=== PATIENT | female | born 1950 ===

== ENCOUNTER 2017-11-06 17:34 | Emergency (ER) | payer MEDICARE ==
[2017-11-06 17:36] VITALS: BMI 33.3
[2017-11-06 17:46] VITALS: PULSE 77; TEMP 98.6
--- NOTE | 2017-11-06 18:06 | C.PDOC ---
"History Of Present Illness 67 year old female with PMHx of colon cancer and HTN presents to the ER complaining of sinus pain, throat pain, rhinorrhea, cough and subjective fever. Patient states she went to PMD 3 months ago for similar symptoms and was given antibiotics with mild relief. Patient also reports she went to the clinic for similar presentation and she was given antibiotics with no relief 3 weeks ago. Pt has tried OTC advil sinus and afrin x 1 week with transient improvement. Denies any nausea, vomiting, dizziness, headache, difficultly breathing, difficulty swallowing or sob. 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 History/Exam Limitations: no limitations Onset/Duration Of Symptoms: Days Current Symptoms Are (Timing): Still Present Location Of Pain: Throat, Sinus/es Sick Contacts (Context): None Associated Symptoms: Fever, Sore Throat, Cough, Nasal Congestion, Other ( Rhinorrhea ) Ear Symptoms: Bilateral: None Past Medical History Reviewed: Historical Data, Nursing Documentation, Vital Signs Vital Signs: Last Vital Signs Temp 98.6 F 11/06/17 19:20 Pulse 77 11/06/17 19:20 Resp 17 11/06/17 19:20 BP 135/69 11/06/17 19:20 Pulse Ox 100 11/06/17 19:20 - Medical History PMH: HTN, Malignancy (colon CA) Surgical History: Appendectomy - [facility] Procedures COLONOSCOPY (05/27/14) Family History: States: No Known Family Hx - Social History Hx Tobacco Use: No Hx Alcohol Use: No Hx Substance Use: No - Immunization History Hx Tetanus Toxoid Vaccination: No Hx Influenza Vaccination: Yes Hx Pneumococcal Vaccination: Yes Review Of Systems Except As Marked, All Systems Reviewed And Found Negative. Constitutional: Positive for: Fever ENT: Positive for: Nose Discharge, Nose Congestion, Throat Pain Respiratory: Negative for: Shortness of Breath Gastrointestinal: Negative for: Nausea, Vomiting Neurological: Negative for: Headache, Dizziness Physical Exam - Physical Exam Appears: Non-toxic, No Acute Distress Skin: Normal Color, Warm, Dry Head: Atraumatic, Normacephalic, Tenderness ((+) frontal sinus tenderness) Eye(s): bilateral: Normal Inspection, PERRL, EOMI Ear(s): Left: Normal, Right: TM Erythema Nose: Discharge (yellow discharge), Other ((+) swelling of turbinates) Oral Mucosa: Moist Tongue: Normal Appearing Lips: Normal Appearing Teeth: Normal Dentition Gingiva: Normal Appearing Throat: Normal, No Erythema, No Exudate, No Drooling Neck: Normal ROM, Supple Lymphatic: Normal Exam Chest: Symmetrical Cardiovascular: Rhythm Regular Respiratory: Normal Breath Sounds, No Rales, No Rhonchi, No Wheezing Gastrointestinal/Abdominal: Soft, No Tenderness Back: No CVA Tenderness, No Vertebral Tenderness Extremity: Normal ROM Neurological/Psych: Oriented x3, Normal Speech, Normal Cognition, Normal Cranial Nerves (2-12 grossly intact) Gait: Steady ED Course And Treatment O2 Sat by Pulse Oximetry: 96 (RA) Pulse Ox Interpretation: Normal - CT Scan/US CT head Other Rad Studies (CT/US): Read By Radiologist, Radiology Report Reviewed CT/US Interpretation: Name: CAMRYN BRYAN Age: 67Years F Date: 11/06/2017. Requesting Physician: Marie Kenny PA-C : 1950. [facility] Procedure Ordered As Accession Number of Images. CT HEAD WO CT HEAD W O CONTRAST [id number]. Provided Clinical History: pain. EXAM: CT Head Without Intravenous Contrast. EXAM DATE/TIME: Exam ordered 11/06/2017 6:00 PM. CLINICAL HISTORY: 67 years old, female; Pain; Headache; Headache not specified. TECHNIQUE: Axial computed tomography images of the head/brain without intravenous contrast. All CT scans at. this facility use at least one of these dose optimization techniques: automated exposure control; mA. and/or kV adjustment per patient size (includes targeted exams where dose is matched to clinical. indication); or iterative reconstruction. Coronal and sagittal reformatted images were created and reviewed. COMPARISON: No relevant prior studies available. FINDINGS: Brain: Mild low density noted within the periventricular white matter extending into the choroid and. centrum semiovale. Ventricles: Unremarkable. Bones/joints: Unremarkable. No acute fracture. Soft tissues: Unremarkable. Sinuses: Near-complete opacification of the maxillary sinuses. Soft tissue thickening is noted of the. ethmoid air cells. An air-fluid levels noted in the left frontal sinus. The right frontal sinuses are almost. completely opacified with soft tissue. Mucosal thickening is noted in the sphenoid sinuses as well. Mastoid air cells: Unremarkable as visualized. No mastoid effusion. IMPRESSION: 1. Chronic macdonald paranasal sinusitis with superimposed acute sinusitis in the left frontal sinus. 2. Mild chronic microvascular ischemic change in deep white matter. CAMRYN BRYAN | P Progress Note: CT head ordered. Pt has clinical findings of acute sinusitis. On re-examination, patient is resting comfortably in no acute distress. Swallowing and breathing without difficutly. Patient instructed to F/u with ENT in 1-2 days for re-evaluation. return to ED if any worsening or new changes. Fingerprint Technician used to ensure understanding. Disposition - Disposition Referrals: Sergio Leon MD [Staff Provider] - Disposition: HOME/ ROUTINE Disposition Time: 18:39 Condition: STABLE Additional Instructions: Vaya a mina mdico o la clnica en 2-5 rogers sin falta, para mas evaluacin. Mondovi los medicamentos ny indicado. Volver a la yuval de emergencia en cualquier momento si los sntomas persisten o empeoran. Prescriptions: Amoxicillin/Clavulanate [Augmentin 875 MG-125 MG] 1 tab PO BID #14 tab Cetirizine HCl/Pseudoephedrine [Zyrtec-D Tablet] 1 each PO Q12 #20 tab.er.12h Fluticasone Nasal [Flonase] 1 actuation NS DAILY #1 spr Instructions: Sinusitis, Adult (DC) Forms: [employer] (Kinyarwanda) Print Language: BENGALI - Clinical Impression Clinical Impression: Sinusitis - PA / ATTENDING UROLOGIST / Resident Statement MD/DO has reviewed & agrees with the documentation as recorded. - Scribe Statement The provider has reviewed the documentation as recorded by the Scribe Maura Borges All medical record entries made by the Scribe were at my direction and personally dictated by me. I have reviewed the chart and agree that the record accurately reflects my personal performance of the history, physical exam, medical decision making, and the department course for this patient. I have also personally directed, reviewed, and agree with the discharge instructions and disposition."
[2017-11-06 19:21] VITALS: BP 135/69; RESP 17
--- NOTE | 2017-11-07 06:01 | CT ---
Date of service: 11/06/2017 PROCEDURE: CT HEAD WITHOUT CONTRAST. HISTORY: pain. Headache COMPARISON: None available. TECHNIQUE: Axial computed tomography images were obtained through the head/brain without intravenous contrast. Radiation dose: Total exam DLP = 835.71 mGy-cm. This CT exam was performed using one or more of the following dose reduction techniques: Automated exposure control, adjustment of the mA and/or kV according to patient size, and/or use of iterative reconstruction technique. FINDINGS: HEMORRHAGE: No intracranial hemorrhage. BRAIN: No mass effect or edema. Mild atrophy and volume loss is noted. There is [id number] white matter changes noted likely due to chronic microvascular ischemic disease. VENTRICLES: Unremarkable. No hydrocephalus. CALVARIUM: Unremarkable. PARANASAL SINUSES: Almost complete opacification of the frontal ethmoid and sphenoid sinuses and complete opacification of the visualized maxillary sinus consistent with pansinusitis. MASTOID AIR CELLS: Unremarkable as visualized. No inflammatory changes. OTHER FINDINGS: None. IMPRESSION: No evidence of acute intracranial hemorrhage intracranial collection mass effect or midline shift. Mild volume loss and [id number] white matter changes likely due to chronic microvascular ischemic disease. Findings suggestive of pansinusitis. Preliminary report was submitted by [facility].
[2017-11-09 13:25] VITALS: O2SAT 96
== END 2017-11-06 19:20 | disposition home or self-care (01) ==
LOC: C.ER 17:34
DX: J01.90 Acute sinusitis, unspecified (principal)

== ENCOUNTER 2018-04-08 16:57 | Emergency (ER) | payer MEDICARE ==
[2018-04-08 16:57] VITALS: BMI 33.3
[2018-04-08 17:11] VITALS: O2SAT 94
[2018-04-08] MEDS ORDERED: Sodium Chloride 0.9% 1,000 ML IV STA (17:42)
[2018-04-08] MEDS ORDERED: Sodium Chloride 0.9% 1,000 ML ONE (18:00)
--- NOTE | 2018-04-08 18:07 | C.PDOC ---
History Of Present Illness 67 years old female with PMHx of right sided Urostomy bag from ileal conduit, presents to ED for complaints of fever, sore throat, bodyaches, nausea, and productive cough that began 2 days ago. Patient has positive sick contace at h ome. Denies vomiting, recent travel, or any other complaints. PMD: * Cecil Santana Time Seen by Provider: 04/08/18 17:36 Chief Complaint (Nursing): Fever History Per: Patient History/Exam Limitations: no limitations Onset/Duration Of Symptoms: Hrs Current Symptoms Are (Timing): Still Present Location Of Pain: Throat, Diffuse Myalgias Sick Contacts (Context): Family Member(s) Associated Symptoms: Fever, Sore Throat, Cough, Myalgias, Nausea Ear Symptoms: Bilateral: None Recent travel outside of the [place]: No Past Medical History Reviewed: Historical Data, Nursing Documentation, Vital Signs Vital Signs: Last Vital Signs Temp 100.3 F H 04/08/18 17:08 Pulse 99 H 04/08/18 17:08 Resp 20 04/08/18 17:08 BP 140/92 H 04/08/18 17:08 Pulse Ox 94 L 04/08/18 17:08 - Medical History PMH: HTN, Malignancy (colon CA) Surgical History: Appendectomy - [facility] Procedures COLONOSCOPY (05/27/14) Family History: States: Unknown Family Hx - Social History Hx Tobacco Use: No Hx Alcohol Use: No Hx Substance Use: No - Immunization History Hx Tetanus Toxoid Vaccination: No Hx Influenza Vaccination: No Hx Pneumococcal Vaccination: No Review Of Systems Except As Marked, All Systems Reviewed And Found Negative. Cardiovascular: Negative for: Chest Pain Gastrointestinal: Negative for: Vomiting Physical Exam - Physical Exam Additional Physical Exam Comments: Constitutional: No acute distress. Head: Normocephalic. Atraumatic. Eyes: PERRL. ENT: Moist mucous membranes.Throat has no erythema or exudates. Neck: Supple. No neck stiffness. No nuchal rigidity. Cardiovascular: Regular rate. Tachycardic. Chest: No tenderness. Respiratory: Clear to auscultation bilaterally. GI: Soft. Nontender. Nondistended. Urostomy bag on right lower abdominal side. Back: No CVA tenderness. Musculoskeletal: No tenderness or swelling of extremities. Skin: No rash. Neurologic: Alert, no focal deficit. ED Course And Treatment - Laboratory Results Result Diagrams: 04/08/18 18:33 04/08/18 18:33 O2 Sat by Pulse Oximetry: 94 (RA) Pulse Ox Interpretation: Abnormal Medical Decision Making Medical Decision Making: Plan: * IV Fluids * Toradol * Zofran * Blood Gas * EKG * Blood work * Blood culture * Urine culture * Flu AB swab * Urinalysis * CXR EKG: * Normal sinus rhythm at 90 bpm * No ST elevations. CXR: Date of service: 04/08/2018 HISTORY: cough, fever COMPARISON: 03/18/2014 TECHNIQUE: Chest PA and lateral FINDINGS: LUNGS: No active pulmonary disease. PLEURA: No significant pleural effusion identified. No pneumothorax apparent. CARDIOVASCULAR: No aortic atherosclerotic calcification present. Normal cardiac size. No pulmonary vascular congestion. OSSEOUS STRUCTURES: No significant abnormalities. VISUALIZED UPPER ABDOMEN: Normal. OTHER FINDINGS: None. IMPRESSION: No active disease. Vitals all improved after treatment in ED, feels well to go home. Tamiflu administered and prescribed. F/u PMD, instructed to return to ED for worsening pain, fever, dyspnea, lethargy, vomiting, or any other problem. Disposition - Disposition Referrals: Cecil Santana MD [Staff Provider] - Disposition: HOME/ ROUTINE Disposition Time: 18:59 Condition: STABLE Prescriptions: Oseltamivir Phosphate [Tamiflu] 1 cap PO BID #9 capsule Instructions: Flu, Adult (DC) Forms: [facility] (Latvian) - Clinical Impression Clinical Impression: Influenza - Scribe Statement The provider has reviewed the documentation as recorded by the Anaibshane Redman All medical record entries made by the Scribe were at my direction and personally dictated by me. I have reviewed the chart and agree that the record accurately reflects my personal performance of the history, physical exam, medical decision making, and the department course for this patient. I have also personally directed, reviewed, and agree with the discharge instructions and disposition.
--- NOTE | 2018-04-08 18:13 | RAD ---
Date of service: 04/08/2018 HISTORY: cough, fever COMPARISON: 03/18/2014 TECHNIQUE: Chest PA and lateral FINDINGS: LUNGS: No active pulmonary disease. PLEURA: No significant pleural effusion identified. No pneumothorax apparent. CARDIOVASCULAR: No aortic atherosclerotic calcification present. Normal cardiac size. No pulmonary vascular congestion. OSSEOUS STRUCTURES: No significant abnormalities. VISUALIZED UPPER ABDOMEN: Normal. OTHER FINDINGS: None. IMPRESSION: No active disease.
[2018-04-08 18:42] LABS: VENOUS BLOOD GAS PCO2 50 mmHg (40-60); VENOUS BLOOD GAS PO2 21 mm/Hg (30-55)
[2018-04-08 18:44] LABS: BASO # 0.1 K/uL (0.0-0.2); BASO % 0.6 % (0.0-2.0); EOS % 0.3 % (0.0-4.0); HEMOGLOBIN 14.2 g/dL (11.0-16.0); LYMPH # 1.3 K/uL (1.0-4.3); LYMPH % 16.1 % (20.0-40.0); MEAN CELL VOLUME 91.7 fL (81.0-99.0); MEAN CORPUSCULAR HEMOGLOBIN 30.5 pg (27.0-31.0); MEAN CORPUSCULAR HGB CONC 33.2 g/dL (33.0-37.0); MEAN PLATELET VOLUME 7.8 fL (7.2-11.7); MONO # 0.8 K/uL (0.0-0.8); MONO % 9.9 % (0.0-10.0); NEUT # 5.8 K/uL (1.8-7.0); NEUT % 73.1 % (50.0-75.0); RBC 4.67 Mil/uL (3.80-5.20); RED CELL DISTRIBUTION WIDTH 13.3 % (11.5-14.5); SQUAMOUS EPITHIAL 8 /hpf (0-5); URINE BACTERIA RARE (<OCC); URINE BILIRUBIN NEGATIVE (NEGATIVE); URINE BLOOD 2+ (NEGATIVE); URINE CLARITY Hazy (Clear); URINE COLOR Yellow (YELLOW); URINE GLUCOSE (UA) NORMAL (Normal); URINE LEUKOCYTE ESTERASE 1+ Leu/uL (Negative); URINE PROTEIN NEGATIVE (NEGATIVE); URINE UROBILINOGEN NORMAL mg/dL (0.2-1.0)
[2018-04-08 18:56] VITALS: BP 157/94; PULSE 66; RESP 18; TEMP 98.5
[2018-04-08 19:02] LABS: BLOOD UREA NITROGEN 10 mg/dL (7-17); CALCIUM 9.2 mg/dl (8.6-10.4); GFR NON-AFRICAN AMERICAN > 60; LIPASE 105 U/L (23-300)
[2018-04-08 19:03] LABS: ALBUMIN 4.7 g/dL (3.5-5.0); ALT/SGPT 66 U/L (9-52); AST/SGOT 104 U/L (14-36)
--- NOTE | 2018-04-10 20:45 | CARD ---
APPROVED REPORT Date of service: 04/08/2018 EKG Measurement Heart [id number] <Conclusion> Normal sinus rhythm Nonspecific T wave abnormality Abnormal ECG
== END 2018-04-08 19:09 | disposition home or self-care (01) ==
LOC: C.ER 16:57
DX: J11.1 Influenza due to unidentified influenza virus with other respiratory manifestations (principal); I10 Essential (primary) hypertension; Z85.038 Personal history of other malignant neoplasm of large intestine
CPT/HCPCS: 71046; 80053; 81001; 82803; 83690; 85025; 87040; 87086; 87181; 87804; 93005; 96361; 96374; 96375; 99285; J1885; J2405; J7030

== ENCOUNTER 2018-07-30 21:20 | Emergency (ER) | payer MEDICARE ==
[2018-07-30 21:20] VITALS: BMI 33.3
[2018-07-30 21:39] VITALS: BP 152/83; PULSE 86; RESP 18; TEMP 98.8; O2SAT 97
[2018-07-30] MEDS ORDERED: Amoxicillin-Clav 875-125 mg Tab PO STA (22:29)
[2018-07-30] MEDS ORDERED: Amoxicillin-Clav 875-125 mg Tab PO ONE (22:39)
--- NOTE | 2018-07-30 23:02 | C.PDOC ---
History Of Present Illness 67 year old female presents to the ED c/o sore throat, congestion, sneezing and generalized body aches for the past 10 days. Patient reports having history of seasonal allergies. Patient states today she felt pain while swallowing and felt no relief with Motrin. Patient denies fever, chills, headache, wheezing, tongue swelling, rash, recent travel. Time Seen by Provider: 07/30/18 22:06 Chief Complaint (Nursing): ENT Problem History Per: Patient History/Exam Limitations: no limitations Onset/Duration Of Symptoms: Days (10) Current Symptoms Are (Timing): Still Present Recent travel outside of the [place]: No Additional History Per: Patient Abnormal Vaginal Bleeding: No Past Medical History Reviewed: Historical Data, Nursing Documentation, Vital Signs Vital Signs: Last Vital Signs Temp 98.8 F 07/30/18 21:30 Pulse 86 07/30/18 21:30 Resp 18 07/30/18 21:30 BP 152/83 H 07/30/18 21:30 Pulse Ox 97 07/30/18 21:30 - Medical History PMH: HTN, Kidney Stones, Malignancy (colon CA), Chronic Kidney Disease Surgical History: Appendectomy - [facility] Procedures COLONOSCOPY (05/27/14) Family History: States: Unknown Family Hx - Social History Hx Tobacco Use: No Hx Alcohol Use: No Hx Substance Use: No - Immunization History Hx Tetanus Toxoid Vaccination: No Hx Influenza Vaccination: No Hx Pneumococcal Vaccination: No Review Of Systems Constitutional: Positive for: Malaise. Negative for: Fever, Chills ENT: Positive for: Nose Discharge, Nose Congestion, Throat Pain Respiratory: Positive for: Cough. Negative for: Shortness of Breath Gastrointestinal: Negative for: Vomiting Skin: Negative for: Rash Neurological: Negative for: Headache Physical Exam - Physical Exam Appears: Non-toxic, No Acute Distress Skin: Normal Color, Warm, Dry, No Rash Head: Atraumatic, Normacephalic, Swelling (periorbital ) Eye(s): bilateral: Normal Inspection Ear(s): Bilateral: Normal Nose: Other (enlarged turbinates) Oral Mucosa: Moist Tongue: No Swelling Lips: No Swelling Throat: Erythema (R > L tonsils), Exudate (R > L tonsils), Other (enlarged tonsils, uvula midline) Neck: Normal ROM, Supple Chest: Symmetrical Cardiovascular: Rhythm Regular Respiratory: Normal Breath Sounds, No Rales, No Rhonchi, No Wheezing Neurological/Psych: Oriented x3, Normal Speech, Normal Cognition Gait: Steady ED Course And Treatment O2 Sat by Pulse Oximetry: 97 (ON RA) Pulse Ox Interpretation: Normal Progress Note: Plan: - Augmentin 1 tab PO. Patient breathing without difficulty in the ED, not whezing. Patient advised to continue using flonase and claritin at home for relief. Patient advised to follow up with PMD and return precautions were discussed. Disposition Counseled Patient/Family Regarding: Diagnosis, Need For Followup - Disposition Referrals: [facility] [Outside] Disposition: HOME/ ROUTINE Disposition Time: 22:55 Condition: STABLE Additional Instructions: Please follow up with PMD Gargle with warm salt water Take medications as directed Return to ER if worse Prescriptions: Amoxicillin/Clavulanate [Augmentin 875 MG-125 MG] 1 tab PO BID #14 tab Fluticasone Propionate [Flonase] 1 spr NS BID #1 bottle Ibuprofen [Motrin] 600 mg PO Q6H #30 tab Instructions: Strep Throat (DC) Forms: [employer] ([place]er) Print Language: TAJIK - Clinical Impression Clinical Impression: Pharyngitis - PA / SUPPORT MERCHANDISER / Resident Statement MD/DO has reviewed & agrees with the documentation as recorded. - Scribe Statement The provider has reviewed the documentation as recorded by the Scribe Elijah Licona All medical record entries made by the Scribe were at my direction and personally dictated by me. I have reviewed the chart and agree that the record accurately reflects my personal performance of the history, physical exam, medical decision making, and the department course for this patient. I have also personally directed, reviewed, and agree with the discharge instructions and disposition.
== END 2018-07-30 23:22 | disposition home or self-care (01) ==
LOC: C.ER 21:20
DX: J02.9 Acute pharyngitis, unspecified (principal)